=== PATIENT | male | born 1960 | race Caucasian/White ===

== ENCOUNTER → 2024-04-09 | Outpatient (CLI) | payer MEDICARE ==
[2024-04-09 16:44] LABS: ALBUMIN 3.8 g/dL (3.5-5.0); BILIRUBIN,TOTAL 0.8 mg/dL (0.2-1.0); CREATININE 0.9 mg/dL (0.5-1.3); MAGNESIUM 1.7 mg/dL (1.80-2.40); POTASSIUM 3.5 mmol/L (3.5-5.1); TOTAL PROTEIN, SERUM 7.2 g/dL (6.0-8.3)
== END | disposition home or self-care (01) ==
LOC: LAB 13:03
PROVIDERS: ATTEND Internal Medicine Cardiovascular Disease
DX: I10 Essential (primary) hypertension (principal); E78.5 Hyperlipidemia, unspecified; I70.0 Atherosclerosis of aorta; Z79.899 Other long term (current) drug therapy
CPT/HCPCS: 36415; 80053; 80061; 82306; 83735